=== PATIENT | male | born 1985 | race Caucasian/White ===

== ENCOUNTER 2018-06-01 14:19 | Emergency (ER) | payer SELFPAY ==
[2018-06-01] MEDS ORDERED: ONDANSETRON HCL INJ/PF 4 MG/2 ML SDV IV ONE (17:37)
--- NOTE | 2018-06-01 17:41 | ER Document Report ---
ED Medical Screen (RME) - General Chief Complaint: Abdominal Pain Stated Complaint: VOMMITING Time Seen by Provider: 06/01/18 17:29 Notes: Patient is a 32-year-old male presents to the emergency department for generalized nausea, vomiting, abdominal cramping. Patient states at one point time he feels as though he vomited blood. Patient is also stating that his stool is "charcoal colored." Patient states prior to moving to this area he was told that he preliminary may have had hepatitis C. Patient states he was a past IV drug user. Patient states that he has noticed in the sclera of his eyes have turned yellow more so in the last 24 hours. GENERAL: Alert, interacts well. No acute distress. HEAD: Normocephalic, atraumatic. EYES: Pupils equal, round, and reactive to light. Extraocular movements intact. Scleral icterus noted bilaterally ABDOMEN: Soft, non-tender. Non-distended. Bowel sounds present in all 4 quadrants. Patient is admitting to intermittent cramping feeling "all over." I have greeted and performed a rapid initial assessment of this patient. A comprehensive ED assessment and evaluation of the patient, analysis of test results and completion of the medical decision making process will be conducted by additional ED providers. TRAVEL OUTSIDE OF THE [place] IN LAST 30 DAYS: No - Related Data Allergies/Adverse Reactions: No Known Allergies Allergy (Verified 06/01/18 17:26) Past Medical History - Social History Chew tobacco use (# tins/day): No Frequency of alcohol use: None Drug Abuse: None Renal/ Medical History: Denies: Hx Peritoneal Dialysis Physical Exam - Vital signs Vitals: Temp Pulse Resp BP Pulse Ox 97.8 F 84 16 117/75 100 06/01/18 14:24 06/01/18 14:24 06/01/18 14:06/01/18 14:24 06/01/18 14:24 Course - Vital Signs Vital signs: Temp Pulse Resp BP Pulse Ox 97.8 F 84 16 117/75 100 06/01/18 14:24 06/01/18 14:24 06/01/18 14:24 06/01/18 14:24 06/01/18 14:24
[2018-06-01] MEDS ORDERED: ONDANSETRON HCL INJ/PF 4 MG/2 ML SDV ONE (20:33)
[2018-06-01] MEDS ORDERED: NORMAL SALINE 1000 ML 1,000 ML IV ONE (20:35)
--- NOTE | 2018-06-01 20:36 | ER Document Report ---
ED General - General Chief Complaint: Abdominal Pain Stated Complaint: VOMMITING Time Seen by Provider: 06/01/18 17:29 Primary Care Provider: [facility] [Provider Group] - Follow up as needed CHANTALE DE MD [ACTIVE STAFF] - Follow up as needed Notes: 32-year-old male with past history of IV drug use with heavy use approximately 2-1/2 years ago presents to the emergency department for abdominal pain, nausea, jaundice, reduced energy. Patient is very anxious and difficult to obtain a history as he is has a very tangential thought process. I attempted several times to redirect him and ultimately he did. He states that he had one episode of hematemesis yesterday, charcoal feces, anxiety, "orange urine". Patient states he is stressed out because he just moved here from [place] and he does not have insurance. TRAVEL OUTSIDE OF THE [place] IN LAST 30 DAYS: No - Related Data Allergies/Adverse Reactions: No Known Allergies Allergy (Verified 06/01/18 17:26) Past Medical History - Social History Smoking Status: Current Every Day Smoker Chew tobacco use (# tins/day): No Frequency of alcohol use: None Drug Abuse: None Family History: None Patient has suicidal ideation: No Patient has homicidal ideation: No Renal/ Medical History: Denies: Hx Peritoneal Dialysis Review of Systems - Review of Systems Constitutional: See HPI EENT: No symptoms reported Cardiovascular: See HPI Respiratory: See HPI Gastrointestinal: See HPI Genitourinary: No symptoms reported Male Genitourinary: No symptoms reported Musculoskeletal: No symptoms reported Skin: No symptoms reported Hematologic/Lymphatic: No symptoms reported Neurological/Psychological: See HPI Physical Exam - Vital signs Vitals: Temp Pulse Resp BP Pulse Ox 97.8 F 84 16 117/75 100 06/01/18 14:24 06/01/18 14:24 06/01/18 14:24 06/01/18 14:24 06/01/18 14:24 - Notes Notes: PHYSICAL EXAMINATION: Reviewed vital signs and charting by RN GENERAL: Alert, and anxious, appears in no acute distress. HEAD: Normocephalic, atraumatic. EYES: Pupils equal, round, and reactive to light. Extraocular movements intact. Scleral icterus ENT: Oral mucosa moist, tongue midline. NECK: Full range of motion. Supple. Trachea midline. LUNGS: Clear to auscultation bilaterally, no wheezes, rales, or rhonchi. No respiratory distress. HEART: Regular rate and rhythm. No murmur ABDOMEN: soft, non-tender. Non-distended. Bowel sounds present in all 4 quadrants. no McBurney's point tenderness, no Clark sign. EXTREMITIES: Moves all 4 extremities spontaneously. No edema, No cyanosis. NEUROLOGICAL: Alert, pressured speech PSYCH: Normal affect, normal mood. SKIN: Warm, dry, normal turgor. Mild jaundice Course - Re-evaluation Re-evalutation: 06/01/18 20:34 Anxious, pressured 32-year-old male who was conflictive with nursing and triage here for generalized abdominal pain and concern for jaundice. Patient is refusing a rectal guaiac test. Nurses were unable to get labs from him in triage. I will add urine and UDS. - Vital Signs Vital signs: Temp Pulse Resp BP Pulse Ox 97.8 F 84 16 117/75 100 06/01/18 14:24 06/01/18 14:24 06/01/18 14:24 06/01/18 14:24 06/01/18 14:24 - Laboratory Result Diagrams: 06/01/18 20:45 06/01/18 20:45 Laboratory results interpreted by me: 06/01/18 06/01/18 06/01/18 20:45 20:45 20:45 MCV 99 H MCH 34.5 H Plt Count 128 L Chloride 94 L Carbon Dioxide 33 H BUN 6 L Total Bilirubin 10.1 H Direct Bilirubin 8.5 H AST 565 H ALT 1830 H Alkaline Phosphatase 136 H Creatine Kinase 25 L Urine Bilirubin Urine Urobilinogen 06/01/18 21:50 MCV MCH Plt Count Chloride Carbon Dioxide BUN Total Bilirubin Direct Bilirubin AST ALT Alkaline Phosphatase Creatine Kinase Urine Bilirubin MODERATE H Urine Urobilinogen 4.0 H Discharge - Discharge Clinical Impression: Hepatitis Abdominal pain Qualifiers: Abdominal location: generalized Qualified Code(s): R10.84 - Generalized abdominal pain Condition: Good Disposition: HOME, SELF-CARE Instructions: Abdominal Pain ([facility]) Additional Instructions: You were seen in the emergency department this evening for abdominal pain and jaundice. Your labs did show that you have hepatitis which is most likely viral in nature. Because you said you initially screened for hepatitis C this could be a flareup. It is very important to follow-up with a GI doctor. I will give you the name for someone to try to contact them. You may need to establish a primary care doctor first and then get a referral from them. If you develop fever, right upper quadrant abdominal pain, or have worsening symptoms please immediately return to the emergency department. Referrals: CHANTALE DE MD [ACTIVE STAFF] - Follow up as needed [facility] [Provider Group] - Follow up as needed
[2018-06-01 21:23] LABS: ABSOLUTE LYMPHOCYTES (AUTO) 1.3 10^3/uL (0.5-4.7); ABSOLUTE MONOCYTES (AUTO) 0.5 10^3/uL (0.1-1.4); ABSOLUTE NEUT (AUTO) 3.1 10^3/uL (1.7-8.2); BASOPHILS % (AUTO) 0.5 % (0-2); EOSINOPHILS % (AUTO) 0.8 % (0-6); HEMATOCRIT 47.3 % (37.9-51.0); HEMOGLOBIN 16.4 g/dL (13.5-17.0); LYMPHOCYTES % (AUTO) 26.7 % (13-45); MEAN CORPUSCULAR HEMOGLOBIN 34.5 pg (27.0-33.4); MEAN CORPUSCULAR HGB CONC 34.8 g/dL (32.0-36.0); MEAN CORPUSCULAR VOLUME 99 fl (80-97); MONOCYTES % (AUTO) 10.1 % (3-13); PLATELET COUNT 128 10^3/uL (150-450); RED BLOOD COUNT 4.77 10^6/uL (4.35-5.55); RED CELL DISTRIBUTION WIDTH 13.1 % (11.5-14.0); SEGMENTED NEUTROPHILS % (AUTO) 61.9 % (42-78); TOTAL CELLS COUNTED % (AUTO) 100 %
[2018-06-01 21:44] LABS: ALBUMIN 4.2 g/dL (3.5-5.0); ALKALINE PHOSPHATASE 136 U/L (38-126); ANION GAP 12 (5-19); ASPARTATE AMINO TRANSFERASE 565 U/L (17-59); BILIRUBIN,DIRECT 8.5 mg/dL (0.0-0.4); BILIRUBIN,TOTAL 10.1 mg/dL (0.2-1.3); BLOOD UREA NITROGEN 6 mg/dL (7-20); CALCIUM 9.3 mg/dL (8.4-10.2); CARBON DIOXIDE 33 mmol/L (22-30); CHLORIDE 94 mmol/L (98-107); GLUCOSE 91 mg/dL (75-110); LIPASE 142.1 U/L (23-300); POTASSIUM 3.9 mmol/L (3.6-5.0); SODIUM 138.7 mmol/L (137-145); TOTAL PROTEIN 8.1 g/dL (6.3-8.2)
[2018-06-01 21:58] LABS: ALANINE AMINOTRANSFERASE 1830 U/L (21-72)
[2018-06-01 23:56] LABS: APPEARANCE,URINE CLEAR; BILIRUBIN,URINE MODERATE (NEGATIVE); COLOR,URINE BROWN; GLUCOSE, URINE NEGATIVE (NEGATIVE); KETONES,URINE NEGATIVE (NEGATIVE); LEUKOCYTE ESTERASE,URINE NEGATIVE (NEGATIVE); NITRITE,URINE NEGATIVE (NEGATIVE); PROTEIN,URINE NEGATIVE (NEGATIVE); URINE SPECIFIC GRAVITY 1.015
[2018-06-02 00:06] LABS: URINE AMPHETAMINES SCREEN NEGATIVE; URINE BARBITURATES SCREEN NEGATIVE; URINE BENZODIAZEPINES SCREEN NEGATIVE; URINE COCAINE SCREEN NEGATIVE; URINE MARIJUANA (THC) SCREEN NEGATIVE; URINE METHADONE SCREEN NEGATIVE; URINE PHENCYCLIDINE SCREEN NEGATIVE
[2018-06-02 00:35] VITALS: BP 105/64
[2018-06-04 05:41] LABS: HEPATITIS B CORE AB IGM Negative (Negative); HEPATITIS B CORE AB TOT Negative (Negative); HEPATITIS BE AB Negative (Negative); HEPATITIS BE ANTIGEN Negative (Negative); HEPATITS B SURFACE ANTIGEN Negative (Negative)
[2018-06-04 07:51] LABS: HEPATITIS B SURFACE AB QUAL Non Reactive (.); HEPATITIS C VIRUS AB >11.0 s/co ratio (0.0-0.9)
== END 2018-06-02 00:41 | disposition home or self-care (01) ==
LOC: EDBD → ER 14:19
DX: R10.84 Generalized abdominal pain (principal); K75.9 Inflammatory liver disease, unspecified; R10.9 Unspecified abdominal pain; R11.2 Nausea with vomiting, unspecified; F17.200 Nicotine dependence, unspecified, uncomplicated
CPT/HCPCS: 99284; 96361; 96374; 36415; 87086; 82550; 83690; 85025; 80053; 81001; 80307; 86704; 86705; 86706; 86707; 86803; 87340; 87350; J2405; J7030